=== PATIENT | female | born 1940 | race Caucasian/White ===

== ENCOUNTER 2024-09-30 23:36 | Emergency (ER) | payer OTHER ==
[~2024-09-30] VITALS: Ht 165.1 cm; Wt 59.0 kg
[2024-09-30 23:45] VITALS: O2SAT 99
[2024-09-30] MEDS: LIDOCAINE HCL/PF 1% 10 MG/ML 5ML VIAL INFIL ONE (23:45)
[2024-09-30] MEDS: BACITRACIN ZINC OINT UDPKT TOP ONE (23:45)
[2024-10-01] MEDS: TETANUS, DIPHTHERIA, PERTUSSIS VAC/PF 0.5ML (>10YR OLD) IM ONE (01:20)
[2024-10-01] MEDS ORDERED: ACET-2708 MT (04:30)
[2024-10-01 06:45] VITALS: BP 128/80; PULSE 85; RESP 20; TEMP 36.4; O2SAT 98
== END 2024-10-01 06:45 ==
LOC: ER 23:36
DX: S01.81XA Laceration without foreign body of other part of head, initial encounter (principal); I10 Essential (primary) hypertension; F03.90 Unspecified dementia, unspecified severity, without behavioral disturbance, psychotic disturbance, mood disturbance, and anxiety; Z00.00 Encounter for general adult medical examination without abnormal findings; W06.XXXA Fall from bed, initial encounter; Y93.84 Activity, sleeping; Y92.89 Other specified places as the place of occurrence of the external cause; Y99.8 Other external cause status
CPT/HCPCS: 99285; 12011; 70450; J2003